=== PATIENT | female | born 1960 | race Caucasian/White ===

== ENCOUNTER → 2022-07-10 23:24 | Outpatient (CLI) | payer MEDICAID, SELFPAY ==
[2022-07-10 19:29] LABS: Alanine Aminotransferase 26 U/L (12-78); Albumin Level 4.2 g/dl (3.5-5.0); Albumin/Globulin Ratio 1.4 (1.1-1.8); Alkaline Phosphatase 101 U/L (38-126); Anion Gap 8.1 mEq/L (5-15); Aspartate Amino Transferase 29 U/L (14-36); Blood Urea Nitrogen 14 mg/dl (7-17); Calcium 9.4 mg/dl (8.4-10.2); Carbon Dioxide 28 mmol/L (22.0-30.0); Chloride 106 mmol/L (98-107); Estimated Glomerular Filt Rate 73 ml/min (>60); GFR (African American) 89 ML/MIN (>60); Globulin 2.9 g/dL (1.3-3.2); Glucose 96 mg/dl (74-100); Potassium 4.1 mmoL/L (3.5-5.1); Sodium 138 mmol/L (136-145); Total Protein,Serum 7.1 g/dl (6.3-8.2)
[2022-07-10 20:01] LABS: Thyroid Stimulating Hormone 0.82 uIU/mL (0.465-4.68)
[2022-07-10 20:20] LABS: Vitamin B12 529 pg/mL (239-931)
[2022-07-25 00:08] LABS: 1,25 Dihydroxy Vitamin D 54 pg/mL (.); 1,25-Dihydroxy, Vitamin D-2 <10 pg/mL (.); 1,25-Dihydroxy, Vitamin D-3 54 pg/mL (.)
== END ==
PROVIDERS: PCP Family Medicine; Visit Provider Family Medicine
DX: I10 Essential (primary) hypertension (principal); Z76.89 Persons encountering health services in other specified circumstances; Z79.899 Other long term (current) drug therapy
CPT/HCPCS: 80053; 82607; 82652; 84443

== ENCOUNTER → 2022-09-03 08:02 | Outpatient (CLI) | payer MEDICAID, SELFPAY ==
--- NOTE | 2022-09-03 08:23 | MR_ITS ---
FINAL REPORT CLINICAL HISTORY: HX OF BENIGN BRAIN TUMOR 20ML PROHANCE INJECTED FINDINGS: Multiplanar MR imaging of the brain was performed without and with contrast. There are scattered foci of increased T2 signal likely representing mild chronic microvascular ischemia. There is no evidence of intracranial hemorrhage. No abnormal extra-axial fluid collection is seen. The ventricular size is within normal limits. There is no evidence of shift of the midline structures. The posterior fossa and brainstem have an unremarkable appearance. No area of abnormal restricted diffusion is identified. There is an 18 x 18 x 16 mm well-circumscribed enhancing mass in the region of the right planum sphenoidale likely representing a meningioma. There is no other mass or abnormal contrast enhancement. Normal major vessel vascular flow voids are noted. IMPRESSION: And hand sing mass in the region of the right planum sphenoidale likely representing a meningioma. Reviewed, Interpreted and Dictated by Brandon Villegas III, MD Transcribed by Gregory Arroyo Authenticated and [facility]
[2022-09-03 08:29] LABS: Blood Urea Nitrogen 16 mg/dl (7-17); Estimated Glomerular Filt Rate 73 ml/min (>60); GFR (African American) 89 ML/MIN (>60)
== END ==
PROVIDERS: PCP Family Medicine; Visit Provider Family Medicine
DX: D49.6 Neoplasm of unspecified behavior of brain (principal)
CPT/HCPCS: 36415; 70553; 82565; 84520; A9576

== ENCOUNTER → 2022-09-07 23:37 | Outpatient (CLI) | payer MEDICAID, SELFPAY ==
[2022-09-07 18:33] LABS: Chol/HDL Ratio 3.2 (1-3.5); Cholesterol 205 mg/dl (140-200); HDL Cholesterol 64 mg/dl (40-60); Triglycerides 185 mg/dl (30-150); VLDL Cholesterol 37 mg/dL (0-40)
[2022-09-07 18:46] LABS: Direct LDL Cholesterol 104.07 mg/dL (100-129)
== END ==
PROVIDERS: PCP Family Medicine; Visit Provider Family Medicine
DX: E78.5 Hyperlipidemia, unspecified (principal)
CPT/HCPCS: 80061